=== PATIENT | female | born 1965 | race Caucasian/White ===

== ENCOUNTER 2016-05-01 16:01 | Inpatient (IN) ==
[2016-05-01] MEDS ORDERED: 0.9 % Sodium Chloride 1,000 ML IVC ONE ×2 (18:22→21:05)
[2016-05-01] MEDS ORDERED: Ondansetron 4 MG/2 ML VIAL IV ONE (18:22)
[2016-05-01] MEDS ORDERED: Vancomycin 1,000 MG in D5% in Water 250 ML IVPB ONE (18:22)
[2016-05-01] MEDS ORDERED: *HR* HYDROmorphone (PF) 1 MG/ML SYRINGE IV ONE (18:22)
--- NOTE | 2016-05-01 18:47 | Emergency Department Note ---
Disposition Clinical Impression: Cellulitis Qualifiers: Site of cellulitis: extremity Site of cellulitis of extremity: lower extremity Laterality: left Qualified Code(s): L03.116 - Cellulitis of left lower limb Disposition: Admitted As Inpatient Condition: Good Extremity Problem HPI - General Chief complaint: ED Extremity Problem,Nontraumatic Stated complaint: L Knee pain s/p sx on Apr 03. Time Seen by Provider: 05/01/16 18:22 Source: patient Limitations: no limitations Nursing Notes Reviewed: Yes Vital Signs Reviewed: Yes - History of Present Illness HPI Narrative: Patient is a 50-year-old female who is postop left total knee replacement on April 03 is coming in for acute pain and swelling her left knee today. She noticed some pain swelling some new erythema on the lateral portion of her left lower extremity. She states she is unable to bear weight and ambulate today due to the pain. Pt Subjective Complaint: extremity pain, extremity swelling Consistency: constant Pain Scale: 8 Quality: dull Improves with: elevation Worsens with: weight bearing, palpation Associated symptoms: Denies: chest pain, shortness of breath - Related Data Home Medications Medication Instructions Recorded Confirmed Hydrochlorothiazide 25 mg PO DAILY 09/15/15 04/03/16 Levothyroxine [Synthroid] 175 mcg PO 0630 09/15/15 04/03/16 Meloxicam [Mobic] 15 mg PO DAILY 09/15/15 04/03/16 Previous Rx's Medication Instructions Recorded Aspirin Enteric Coated [Aspirin EC] 325 mg PO DAILY #21 tablet. 04/02/16 OxyCODONE Immed Rel [Roxicodone 5 5 - 10 mg PO Q6HR PRN #40 tablet 04/02/16 MG] Allergies Allergy/AdvReac Type Severity Reaction Status Date / Time Erythromycin Base Allergy Gastrointestinal Verified 05/01/16 17:11 Upset All systems ED: reviewed and negative except as stated. Constitutional: Denies: fever, chills, weakness Cardiovascular: Denies: chest pain, palpitations Gastrointestinal: Denies: abdominal pain, nausea Past Medical History - Past Medical History Medical history: Reports: cancer Psychiatric history: Reports: no psych history WELFARE SPECIALIST history: Reports: no WELFARE SPECIALIST history - Social History Smoking Status: Former smoker Smokeless Tobacco Status: No Alcohol use: Reports: none Drug use: Reports: none Physical Exam - General Limitations: no limitations General appearance: alert, in no apparent distress - Head Head exam: atraumatic, normocephalic, normal inspection - Eye Eye exam: Present: normal appearance, PERRL, EOMI - ENT ENT exam: normal exam, normal oropharynx, mucous membranes moist - Neck Neck exam: Present: normal inspection, full ROM, trachea midline - Chest Chest inspection: Present: normal inspection, symmetric chest wall rise - Respiratory Respiratory exam: Present: normal lung sounds bilaterally - Cardiovascular Cardiovascular exam: Present: regular rate, normal rhythm, normal heart sounds - Abdominal Exam Abdominal exam: Present: soft, Non-Tender. Absent: tenderness, distention, guarding, rebound, rigidity - Expanded Lower Extremity Exam Knee exam: Present: other (Patient's left knee wound is clean dry and intact it does appear to be some cellulitis in the lower portion extending from the wound laterally proximally 6 cm in diameter will be outlined. Warm erythematous patient has decreased flexion secondary to pain and swelling.) - Back Exam Back exam: Present: normal inspection, full ROM. Absent: tenderness - Neurological Exam Neurological exam: Present: alert, oriented X3 - Psychiatric Psychiatric exam: Present: normal affect, normal mood Course Vital Signs Temperature 99.9 F H 05/01/16 17:06 Pulse Rate 75 05/01/16 17:06 Respiratory Rate 18 05/01/16 17:06 Blood Pressure 132/83 05/01/16 17:06 O2 Sat by Pulse Oximetry 98 05/01/16 17:06 Temperature 99.9 F H 05/01/16 17:06 Pulse Rate 75 05/01/16 17:06 Respiratory Rate 18 05/01/16 17:06 Blood Pressure 132/83 05/01/16 17:06 O2 Sat by Pulse Oximetry 98 05/01/16 17:06 Oxygen Delivery Oxygen Delivery Room Air Extremity Problem, Nontraumati - [facility] Narrative Medical decision making narrative: I spoke with Dr. Rodriguez on Bessy to the hospitalist service Dr. Brown blood cultures were drawn IV and about excuse given - Differential Diagnosis Likely: cellulitis, superficial thrombophlebitis, deep venous thrombosis, lower extremity edema, occult trauma - Medical Records Medical records reviewed: Yes I reviewed the patient's medical records. - Lab Data Lab results reviewed: Yes I reviewed the patient's lab results. Result diagrams: 05/01/16 18:59 05/01/16 18:59 Lab Results 05/01/16 05/01/16 05/01/16 Range/Units 18:59 18:59 18:59 WBC 16.7 H (4.3-11.1) K/mcL RBC 4.25 (3.82-4.97) M/mcL Hgb 13.2 (11.5-15.4) g/dL Hct 38.5 (35.3-44.9) % MCV 90.6 (83.0-100.0) fL MCH 31.1 (28.0-33.3) pg MCHC 34.3 (31.6-35.5) g/dL RDW 14.2 (11.5-14.5) % Plt Count 305 (140-400) K/mcL MPV 11.1 (9.4-12.4) fL Immature Gran % 0.4 (0-4) % Seg Neutrophils % 85.2 % Lymphocytes % 5.7 % Monocytes % 8.3 % Eosinophils % 0.3 % Basophils % 0.1 % Neutrophils # 14.2 H (1.6-8.9) K/mcL Lymphocytes # 1.0 (0.6-4.6) K/mcL Monocytes # 1.4 H (0.0-1.3) K/mcL Eosinophils # 0.1 (0.0-0.6) K/mcL Basophils # 0.0 (0.0-0.2) K/mcL ESR 34 H (0-15) mm/hr Sodium (136-145) mEq/L Potassium (3.5-4.5) mEq/L Chloride (98-109) mEq/L Carbon Dioxide (19-29) mEq/L BUN (7-20) mg/dL Creatinine (0.57-1.11) mg/dL Est GFR ( Amer) (> 60) Est GFR (Non-Af Amer) (> 60) BUN/Creatinine Ratio (6-26) Glucose (70-99) mg/dL Calculated Osmolality (280-300) Calcium (8.6-10.8) mg/dL C-Reactive Protein 45 H (Less than 5) mg/L 05/01/16 Range/Units 18:59 WBC (4.3-11.1) K/mcL RBC (3.82-4.97) M/mcL Hgb (11.5-15.4) g/dL Hct (35.3-44.9) % MCV (83.0-100.0) fL MCH (28.0-33.3) pg MCHC (31.6-35.5) g/dL RDW (11.5-14.5) % Plt Count (140-400) K/mcL MPV (9.4-12.4) fL Immature Gran % (0-4) % Seg Neutrophils % % Lymphocytes % % Monocytes % % Eosinophils % % Basophils % % Neutrophils # (1.6-8.9) K/mcL Lymphocytes # (0.6-4.6) K/mcL Monocytes # (0.0-1.3) K/mcL Eosinophils # (0.0-0.6) K/mcL Basophils # (0.0-0.2) K/mcL ESR (0-15) mm/hr Sodium 138 (136-145) mEq/L Potassium 3.5 (3.5-4.5) mEq/L Chloride 102 (98-109) mEq/L Carbon Dioxide 24 (19-29) mEq/L BUN 12 (7-20) mg/dL Creatinine 0.77 (0.57-1.11) mg/dL Est GFR ( Amer) > 60 (> 60) Est GFR (Non-Af Amer) > 60 (> 60) BUN/Creatinine Ratio 16 (6-26) Glucose 130 H (70-99) mg/dL Calculated Osmolality 288 (280-300) Calcium 9.6 (8.6-10.8) mg/dL C-Reactive Protein (Less than 5) mg/L - Radiology Data Radiology results reviewed: Yes I reviewed the patient's radiology results.
[2016-05-01 19:15] LABS: Basophils % 0.1 %; Eosinophils # 0.1 K/mcL (0.0-0.6); Eosinophils % 0.3 %; Hematocrit 38.5 % (35.3-44.9); Hemoglobin 13.2 g/dL (11.5-15.4); Immature Granulocytes % 0.4 % (0-4); Lymphocytes % 5.7 %; Mean Corpuscular HGB Conc 34.3 g/dL (31.6-35.5); Mean Corpuscular Hemoglobin 31.1 pg (28.0-33.3); Mean Corpuscular Volume 90.6 fL (83.0-100.0); Mean Platelet Volume 11.1 fL (9.4-12.4); Monocytes # 1.4 K/mcL (0.0-1.3); Monocytes % 8.3 %; Neutrophils # 14.2 K/mcL (1.6-8.9); Platelet Count 305 K/mcL (140-400); Red Blood Count 4.25 M/mcL (3.82-4.97); Red Cell Distribution Width 14.2 % (11.5-14.5); Segmented Neutrophils % 85.2 %
[2016-05-01 19:25] LABS: BUN/Creatinine Ratio 16 (6-26); Blood Urea Nitrogen 12 mg/dL (7-20); Calcium 9.6 mg/dL (8.6-10.8); Carbon Dioxide 24 mEq/L (19-29); Chloride 102 mEq/L (98-109); Glucose 130 mg/dL (70-99); Osmolality,Calculated 288 (280-300); Potassium 3.5 mEq/L (3.5-4.5); Sodium 138 mEq/L (136-145); eGFR For African Americans > 60 (> 60); eGFR For Non-African Americans > 60 (> 60)
[2016-05-01] MEDS ORDERED: *HR* Morphine 2 MG/ML SYRINGE IVP PRN (21:07)
[2016-05-01] MEDS ORDERED: Ondansetron 4 MG/2 ML VIAL IVP ONE (21:09)
--- NOTE | 2016-05-01 21:31 | Internal Med History&Physical ---
Date of Encounter: 05/01/16 Time of Encounter: 21:16 Assessment and Plan (1) Cellulitis Current visit: Yes Status: Acute Patient has acute cellulitis of the left knee and upper leg. My concern is if there is any associated septic arthritis. Patient definitely has decreased range of motion from 90 to 45. She is unable to bear weight except with severe pain on the left lower extremity. Septic arthritis is definitely a concern. Orthopedic service has been contacted by emergency room physician and I was told that their suspicion for septic arthritis is low. Patient has also been seen by orthopedic physician assistant merchandiser and she also thought that etiology is likely cellulitis. Anyways I will cover the patient empirically with bots recommend antibiotics vancomycin Zosyn. Blood cultures were ordered. Patient who receive 2L NORMAL SALINE. Continue normal saline 125 ml/h. await orthopedic recommendations. A systolic blood pressure currently is 150. She is not hypotensive. She will be kept on tele monitoring. I will check Doppler of the left lower extremity to rule out DVT Qualifiers: Site of cellulitis: extremity Site of cellulitis of extremity: lower extremity Laterality: left Qualified Code(s): L03.116 - Cellulitis of left lower limb (2) HTN (hypertension) Current visit: No Status: Chronic Whole blood pressure medications Qualifiers: Hypertension type: unspecified secondary hypertension Qualified Code(s): I15.9 - Secondary hypertension, unspecified; I15 - Secondary hypertension (3) Thyroid cancer Current visit: No Status: Chronic Status post thyroidectomy currently on levothyroxine. continue Internal Medicine - H&P: HPI Chief complaint: LEFT KNEE PAIN FEVER History of present illness: Ms. Mendes is a 50 year old female who had a recent left total knee arthroplasty after which she had a postoperative course, was able to bear weight on the left lower extremity and ambulate independently, presents to the emergency room today with the main complain of left knee pain and fever. Patient wants in her usual state of health till this morning when she started noticing swelling warmth tenderness and swelling involving the left knee especially on the lateral side as well as the upper part of the lateral left leg. She was having problems weight-bearing on the left lower extremity because of severe pain. She also has been having fevers and chills today and temperature at home was 100.8. The range of motion at the left knee was up to 90% with physical therapy after surgery. Today the range of motion is about 45% . Knee x-rays shows a small left knee fusion. She denies any drainage in the left knee incision. She denies any call for expectoration. No diarrhea. No urinary symptoms. Past Med Surg Social Fam HX - Past Medical History Medical history: cancer Psychiatric history: no psych history - Social History Smoking Status: Former smoker Smokeless Tobacco Status: No Alcohol use: none Drug use: none - Family History Father Hx Family Cardiac Disorders: Yes ([place]) Internal Medicine - H&P: Meds Hydrochlorothiazide 25 mg PO DAILY 09/15/15 [History] Levothyroxine [Synthroid] 175 mcg PO DAILY 09/15/15 [History] OxyCODONE Immed Rel [Roxicodone 5 MG] 5 - 10 mg PO Q6HR PRN #40 tablet 04/02/16 [Rx] Ibuprofen [Motrin] 800 mg PO Q8HR 05/01/16 [History] Allergies Erythromycin Base Allergy (Verified 05/01/16 17:11) Gastrointestinal Upset All Systems PM: A 10-system review of systems was performed and is negative for pertinent findings except as documented above in the HPI. Review of systems: Ten point review of systems is negative except for HPI - Constitutional Vitals: Temp Pulse Resp BP Pulse Ox 99.9 F H 75 18 132/83 98 05/01/16 17:06 05/01/16 18:06 05/01/16 18:06 05/01/16 18:06 05/01/16 18:06 Exam: Gen.: patient is alert oriented not in distress. Cardiac: Normal S1 S2 no additional sounds or murmurs chest: clear to auscultation abdomen soft nontender nondistended normal bowel sounds lower extremity: left knee swollen red warm tender. ROM 45 degrees. Upper lateral right leg also red.. Pulsations intact. Calf muscle lax neuro no focal deficit Internal Med - H&P Results - Labs CBC & Chem 7: 05/01/16 18:59 05/01/16 18:59
[2016-05-01] MEDS ORDERED: Piperacillin/Tazobactam 3.375 GM in D5% in Water (Mini-Bag+) 100 ML IVPB SCH (22:00)
[2016-05-01] MEDS: *HR* Heparin 5,000 UNIT/ML VIAL SQ SCH (23:15)
[2016-05-01] MEDS: D5% in 0.9% NACL 1,000 ML IVC SCH (23:17)
[2016-05-02] MEDS ORDERED: *HR* HYDROmorphone 2 MG/ML SYRINGE IVP PRN (00:05)
[2016-05-02] MEDS ORDERED: 0.9 % Sodium Chloride 1,000 ML IVC ONE (00:06)
[2016-05-02] MEDS: *HR* HYDROmorphone (PF) 1 MG/ML SYRINGE IVP PRN ×5 (03:32→23:49)
[2016-05-02 05:59] LABS: Basophils % 0.2 %; Eosinophils # 0.1 K/mcL (0.0-0.6); Eosinophils % 0.6 %; Hematocrit 34.8 % (35.3-44.9); Immature Granulocytes % 0.4 % (0-4); Lymphocytes # 1.1 K/mcL (0.6-4.6); Lymphocytes % 8.9 %; Mean Corpuscular HGB Conc 32.8 g/dL (31.6-35.5); Mean Corpuscular Hemoglobin 30.4 pg (28.0-33.3); Mean Corpuscular Volume 92.8 fL (83.0-100.0); Mean Platelet Volume 11.1 fL (9.4-12.4); Monocytes # 1.3 K/mcL (0.0-1.3); Monocytes % 10.8 %; Neutrophils # 9.4 K/mcL (1.6-8.9); Platelet Count 256 K/mcL (140-400); Red Blood Count 3.75 M/mcL (3.82-4.97); Red Cell Distribution Width 14.4 % (11.5-14.5); Segmented Neutrophils % 79.1 %
[2016-05-02 06:00] LABS: Hemoglobin 11.4 g/dL (11.5-15.4)
[2016-05-02] MEDS ORDERED: Vancomycin 1,000 MG in D5% in Water 250 ML IVPB SCH (06:00)
[2016-05-02 06:11] LABS: BUN/Creatinine Ratio 13 (6-26); Blood Urea Nitrogen 9 mg/dL (7-20); C-Reactive Protein 136 mg/L (Less than 5); Calcium 8.3 mg/dL (8.6-10.8); Carbon Dioxide 23 mEq/L (19-29); Chloride 103 mEq/L (98-109); Glucose 143 mg/dL (70-99); Magnesium 1.7 mg/dL (1.6-2.6); Osmolality,Calculated 283 (280-300); Potassium 3.3 mEq/L (3.5-4.5); Sodium 136 mEq/L (136-145); eGFR For African Americans > 60 (> 60); eGFR For Non-African Americans > 60 (> 60)
--- NOTE | 2016-05-02 06:20 | Orthopedics Progress Note ---
Date of Encounter: 05/02/16 Time of Encounter: 06:19 Subjective Interval history: Patient seen this morning Acute Onset of Left Knee Pain. The Swelling. Patient with History of Contact Dermatitis. Resolving Contact Dermatitis on Exam Swelling Is Erythema Distal to the Knee Joint Decreased Motion Secondary to Pain Neurovascularly Intact. Labs reviewed her continued IV antibiotics reevaluation this afternoon concerned with cellulitis primarily. Objective Vital signs: Vital Signs Temp Pulse Resp BP Pulse Ox 05/02/16 03:53 98.7 F 101 19 128/85 98 05/01/16 23:32 98.8 F 104 17 126/81 98 Intake and Output 05/01/16 05/01/16 05/02/16 15:59 23:59 07:59 Output Total 350 / 350 Balance -350 / -350 Output: Urine 350 / 350 Other: Weight 117.4 kg - Labs CBC & BMP: 05/02/16 05:11 05/02/16 05:11 Labs: Abnormal lab results WBC 11.9 K/mcL (4.3-11.1) H 05/02/16 05:11 RBC 3.75 M/mcL (3.82-4.97) L 05/02/16 05:11 Hgb 11.4 g/dL (11.5-15.4) L D 05/02/16 05:11 Hct 34.8 % (35.3-44.9) L 05/02/16 05:11 Neutrophils # 9.4 K/mcL (1.6-8.9) H 05/02/16 05:11 ESR 34 mm/hr (0-15) H 05/01/16 18:59 Potassium 3.3 mEq/L (3.5-4.5) L 05/02/16 05:11 Glucose 143 mg/dL (70-99) H 05/02/16 05:11 Calcium 8.3 mg/dL (8.6-10.8) L 05/02/16 05:11 C-Reactive Protein 136 mg/L (Less than 5) H 05/02/16 05:11 Consult Discharge Plan - Plan
[2016-05-02] MEDS: *HR* Heparin 5,000 UNIT/ML VIAL SQ SCH ×3 (06:29→23:44)
[2016-05-02] MEDS: D5% in 0.9% NACL 1,000 ML IVC SCH (08:34)
[2016-05-02] MEDS: Vancomycin 1,750 MG in D5% in Water 500 ML IVPB SCH ×2 (08:35→21:02)
[2016-05-02] MEDS: Famotidine 20 MG TABLET PO SCH ×2 (08:36→08:48)
[2016-05-02] MEDS: Acetaminophen 325 MG TABLET PO PRN ×2 (08:36→18:36)
[2016-05-02] MEDS ORDERED: *HR* HYDROcodone/Acet 5/325 mg TABLET PO PRN ×2 (08:44→12:28)
[2016-05-02] MEDS: Ondansetron 4 MG/2 ML VIAL IVP PRN ×2 (09:01→21:30)
[2016-05-02] MEDS: Piperacillin/Tazobactam 3.375 GM in D5% in Water (Mini-Bag+) 100 ML IVPB SCH ×3 (10:35→23:43)
[2016-05-02] MEDS: *HR* HYDROcodone/Acet 5/325 mg TABLET PO PRN ×3 (13:02→21:32)
--- NOTE | 2016-05-02 16:38 | Event Note ---
Date of Encounter: 05/02/16 Time of Encounter: 16:37 CRP elevated 134, WBC decreased to 11.9. Will continue with close monitoring. Continue IV Vanc/Zosyn.
--- NOTE | 2016-05-02 16:48 | Internal Med Progress Note ---
Date of Encounter: 05/02/16 Time of Encounter: 16:45 - Assessment and plan (1) Cellulitis Current Visit: Yes Status: Acute Assessment and plan: Patient initially was febrile, with criteria for sepsis, there was a concern for septic arthritis. She was established on both Zosyn and vancomycin. Evaluated by orthopedic surgery, according to the orthopedic surgeon's input patient likely has cellulitis only. However in light of the elevated CRP, we will continue with both IV vancomycin and IV Zosyn. Patient has been complaining of significant pain, she cannot require high doses of opiates via IV. We will continue with IV medications along with by mouth medications when necessary. Patient is at high risk due to use of opiates. Plan of care was explained to the patient, she expressed understanding. Follow cultures. Follow vancomycin levels. Follow renal function tests. Qualifiers: Site of cellulitis: extremity Site of cellulitis of extremity: lower extremity Laterality: left Qualified Code(s): L03.116 - Cellulitis of left lower limb (2) Obesity Current Visit: No Status: Chronic Qualifiers: Obesity type: unspecified obesity type Obesity severity: morbid Qualified Code(s): E66.01 - Morbid (severe) obesity due to excess calories (3) Thyroid cancer Current Visit: No Status: Chronic - Time Spent With Patient 25 - 35 minutes - Subjective Interval history: This is my first encounter with the patient. The patient was seen and examined on rounds. Family members were present during this encounter. Still feels pain in the left knee, however it has dictating the use of IV medication. Erythema has decreased according to the patient. - Constitutional Vitals: Temp Pulse Resp BP Pulse Ox 99.4 F 88 16 100/62 99 05/02/16 15:01 05/02/16 15:01 05/02/16 15:01 05/02/16 15:01 05/02/16 15:01 General appearance: Present: cooperative, A&O X 3, morbidly obese - Head Head exam: Present: atraumatic, normocephalic - Eye Eye exam: Present: PERRL, conjuntiva pink, sclera anicteric Pupils: Present: PERRL - Neck Neck exam general surgery: Present: supple, trachea midline. Absent: lymphadenopathy - Respiratory Respiratory exam: Present: CTAB. Absent: accessory muscle use, rales, rhonchi, wheezes - Cardiovascular Cardiovascular exam: Present: RRR, +S1, +S2. Absent: diastolic murmur, gallop, rubs, systolic murmur - GI/Abdominal GI/Abdominal exam: Present: normal bowel sounds, soft, no peritoneal signs. Absent: distended, tenderness - Extremities Exam Extremities exam: Present: warm, radial pulses palpable and symetrical. Absent : calf tenderness, cyanotic, pedal edema Additional comments: eft knee swollen red warm tender. ROM 45 degrees. Upper lateral right leg also red.. Pulsations intact. Calf muscle lax neuro no focal deficit - Neurological Exam Neurological exam: Present: CN II-XII intact, oriented X3, no focal deficits. Absent: pronater drift, facial droop, speech deficit - Skin Skin exam: Present: dry, intact Internal Medicine: Result - Labs CBC & Chem 7: 05/02/16 05:11 05/02/16 05:11 Labs: Short CBC 05/02/16 Range/Units 05:11 WBC 11.9 H (4.3-11.1) K/mcL Hgb 11.4 L D (11.5-15.4) g/dL Hct 34.8 L (35.3-44.9) % Plt Count 256 (140-400) K/mcL Neutrophils # 9.4 H (1.6-8.9) K/mcL BMP 05/02/16 05:11 Sodium 136 Potassium 3.3 L Chloride 103 Carbon Dioxide 23 BUN 9 Creatinine 0.69 Glucose 143 H Calcium 8.3 L Consult Discharge Plan - Plan Referrals: Tita Clemente MD [Primary Care Provider] -
--- NOTE | 2016-05-02 18:07 | Venous Imaging Report ---
LE Venous Duplex Patient Name:Mackenzie Mendes Order Number:[id number] Procedure Date:05/02/2016 Date:1965Age:50 yrs Gender:Female Location:[facility] Room #: [id number] Petroleum Sampler:Kristi Pagan RVT Referring MD:Dung Brown MD marketing rep:Tita Clemente MD Reading MD:Miguel Mayers MD , FACS Primary Indications:DVT Secondary Indications: Risk Factors Yes/No Hx of DVT Yes Anticoagulants Yes Recent Surgery Yes Impressions: Left lower extremity: normal superficial and deep exam. Right lower extremity: normal contralateral exam. Findings Venous Duplex Results: Right: Venous imaging of the lower extremity reveals full patency and normal vessel compressibility of the right common femoral. Doppler signals in the evaluated veins were normal. Left: Venous imaging of the lower extremity reveals full patency and normal vessel compressibility of the left distal iliac, left common femoral, left superficial femoral, left popliteal, left posterior tibial, left great saphenous and left lesser saphenous. Doppler signals in the evaluated veins were normal. Prior Study: No prior study available for comparison. Lower Extremity Venous Duplex Side Vein Compress Spontaneous Flow Augment Diameter (cm) Depth (cm) Left Distal Iliac Normal Yes Phasic Yes Left Common Femoral Normal Yes Phasic Yes Left Superficial Femoral Normal Yes Phasic Yes Left Popliteal Normal Yes Phasic Yes Left Posterior Tibial Normal Yes Phasic Yes Left Great Saphenous Normal Yes Phasic Yes Left Lesser Saphenous Normal Yes Phasic Yes Right Common Femoral Normal Yes Phasic Yes Updated by Miguel Mayers MD, FACS on 05/02/2016 6:00:27 PM Miguel Mayers MD electronically signed on 05/02/2016 6:00:51 PM with status of Final
[2016-05-02] MEDS ORDERED: Piperacillin/Tazobactam 3.375 GM VIAL IVPB ONE (23:38)
[2016-05-03] MEDS: *HR* HYDROcodone/Acet 5/325 mg TABLET PO PRN ×2 (03:45→09:58)
[2016-05-03] MEDS: *HR* Heparin 5,000 UNIT/ML VIAL SQ SCH ×3 (06:52→23:37)
[2016-05-03] MEDS: *HR* HYDROmorphone (PF) 1 MG/ML SYRINGE IVP PRN ×3 (06:55→22:56)
--- NOTE | 2016-05-03 08:16 | Orthopedics Progress Note ---
Date of Encounter: 05/03/16 Time of Encounter: 08:15 Subjective Interval history: Patient seen this morning feels like she is doing better improve motion. Patient had a significant increase in her CRP. Patient underwent sterile aspiration of the left knee which returned serosanguineous fluid. This was sent for Gram stain which showed no bacteria. Low suspicion of intra-articular process resolving cellulitis as well as resolving contact dermatitis recommended 24 hours more of IV antibiotics and discharged in the a.m. if continuing to improve. Objective Vital signs: Vital Signs Temp Pulse Resp BP Pulse Ox 05/03/16 06:51 98.6 F 93 16 100/66 97 05/03/16 04:53 99.1 F 100 16 119/68 99 05/03/16 00:04 99.2 F 85 14 109/74 96 05/02/16 21:27 98 16 102/69 98 05/02/16 21:14 98 16 102/69 98 05/02/16 18:32 101.1 F H 109 144/83 05/02/16 15:01 99.4 F 88 16 100/62 99 05/02/16 13:00 98.5 F 63 16 118/62 96 Intake and Output 05/02/16 05/03/16 05/03/16 23:59 07:59 15:59 Intake Total 440 / 440 900 / 900 Balance 440 / 440 900 / 900 Intake: IV Fluids 200 / 200 600 / 600 Zosyn 3.375 GM In 200 / 200 100 / 100 Dextrose 5% (Minibag+) 100 ML 100 ML @ 25 mls/hr IVPB Q8H JACQUELYN Rx#: [id number] Vancocin 1,750 MG In 500 / 500 Dextrose 5% 500 ML @ 333. 34 mls/hr IVPB Q12H JACQUELYN Rx#:[id number] Oral 240 / 240 300 / 300 Other: # Voids 1 - Labs CBC & BMP: 05/02/16 05:11 05/02/16 05:11 Labs: Abnormal lab results WBC 11.9 K/mcL (4.3-11.1) H 05/02/16 05:11 RBC 3.75 M/mcL (3.82-4.97) L 05/02/16 05:11 Hgb 11.4 g/dL (11.5-15.4) L D 05/02/16 05:11 Hct 34.8 % (35.3-44.9) L 05/02/16 05:11 Neutrophils # 9.4 K/mcL (1.6-8.9) H 05/02/16 05:11 ESR 34 mm/hr (0-15) H 05/01/16 18:59 Potassium 3.3 mEq/L (3.5-4.5) L 05/02/16 05:11 Glucose 143 mg/dL (70-99) H 05/02/16 05:11 Calcium 8.3 mg/dL (8.6-10.8) L 05/02/16 05:11 C-Reactive Protein 136 mg/L (Less than 5) H 05/02/16 05:11 Consult Discharge Plan - Plan Referrals: Tita Clemente MD [Primary Care Provider] -
[2016-05-03 08:21] LABS: Basophils % 0.2 %; Eosinophils # 0.1 K/mcL (0.0-0.6); Eosinophils % 0.7 %; Hematocrit 31.7 % (35.3-44.9); Hemoglobin 10.6 g/dL (11.5-15.4); Immature Granulocytes % 0.6 % (0-4); Lymphocytes # 0.7 K/mcL (0.6-4.6); Lymphocytes % 8.1 %; Mean Corpuscular HGB Conc 33.4 g/dL (31.6-35.5); Mean Corpuscular Volume 92.7 fL (83.0-100.0); Mean Platelet Volume 10.8 fL (9.4-12.4); Monocytes # 0.8 K/mcL (0.0-1.3); Monocytes % 9.5 %; Neutrophils # 6.8 K/mcL (1.6-8.9); Platelet Count 212 K/mcL (140-400); Red Blood Count 3.42 M/mcL (3.82-4.97); Red Cell Distribution Width 14.4 % (11.5-14.5); Segmented Neutrophils % 80.9 %
[2016-05-03 08:34] LABS: BUN/Creatinine Ratio 10 (6-26); Blood Urea Nitrogen 8 mg/dL (7-20); Calcium 9.1 mg/dL (8.6-10.8); Carbon Dioxide 24 mEq/L (19-29); Chloride 102 mEq/L (98-109); Glucose 132 mg/dL (70-99); Osmolality,Calculated 280 (280-300); Potassium 3.4 mEq/L (3.5-4.5); Sodium 135 mEq/L (136-145); eGFR For African Americans > 60 (> 60); eGFR For Non-African Americans > 60 (> 60)
[2016-05-03] MEDS: Ondansetron 4 MG/2 ML VIAL IVP PRN ×2 (09:10→15:23)
[2016-05-03] MEDS: Piperacillin/Tazobactam 3.375 GM in D5% in Water (Mini-Bag+) 100 ML IVPB SCH ×3 (09:14→19:41)
[2016-05-03] MEDS: Vancomycin 1,750 MG in D5% in Water 500 ML IVPB SCH ×3 (09:15→23:37)
[2016-05-03] MEDS: Famotidine 20 MG TABLET PO SCH (09:15)
[2016-05-03] MEDS: Acetaminophen 325 MG TABLET PO PRN ×2 (09:29→15:30)
--- NOTE | 2016-05-03 16:33 | Internal Med Progress Note ---
Date of Encounter: 05/03/16 Time of Encounter: 16:30 - Assessment and plan (1) Cellulitis Current Visit: Yes Status: Acute Assessment and plan: Patient initially was febrile, with criteria for sepsis, there was a concern for septic arthritis. She was started on both Zosyn and vancomycin, however still had fever last night and is still in significant pain. Evaluated by orthopedic surgery, according to the orthopedic surgeon's input patien has cellulitis only. Gram stain did not reveal bacteria. However in light of the elevated CRP, we will continue with both IV vancomycin and IV Zosyn. Patient has been complaining of significant pain, We will continue with IV medications along with by mouth medications when necessary. Patient is at high risk due to use of opiates. Plan of care was explained to the patient, she expressed understanding. Follow cultures. Follow vancomycin levels. Follow renal function tests. monitor crp tomorrow. Qualifiers: Site of cellulitis: extremity Site of cellulitis of extremity: lower extremity Laterality: left Qualified Code(s): L03.116 - Cellulitis of left lower limb (2) Obesity Current Visit: No Status: Chronic Qualifiers: Obesity type: unspecified obesity type Obesity severity: morbid Qualified Code(s): E66.01 - Morbid (severe) obesity due to excess calories (3) Thyroid cancer Current Visit: No Status: Chronic - Subjective Interval history: The patient was seen and examined on rounds. Family members were present during this encounter. Still feels pain in the left knee. Fever last night. Erythema has increased according to the patient. - Constitutional Vitals: Temp Pulse Resp BP Pulse Ox 99.5 F 97 18 150/80 97 05/03/16 15:43 05/03/16 15:43 05/03/16 15:43 05/03/16 15:43 05/03/16 15:43 General appearance: Present: cooperative, A&O X 3, morbidly obese - Head Head exam: Present: atraumatic, normocephalic - Eye Eye exam: Present: PERRL, conjuntiva pink, sclera anicteric Pupils: Present: PERRL - Neck Neck exam general surgery: Present: supple, trachea midline. Absent: lymphadenopathy - Respiratory Respiratory exam: Present: CTAB. Absent: accessory muscle use, rales, rhonchi, wheezes - Cardiovascular Cardiovascular exam: Present: RRR, +S1, +S2. Absent: diastolic murmur, gallop, rubs, systolic murmur - GI/Abdominal GI/Abdominal exam: Present: normal bowel sounds, soft, no peritoneal signs. Absent: distended, tenderness - Extremities Exam Extremities exam: Present: warm, radial pulses palpable and symetrical. Absent : calf tenderness, cyanotic, pedal edema Additional comments: pain and erythema in left knee, decreased range of motion. - Neurological Exam Neurological exam: Present: CN II-XII intact, oriented X3, no focal deficits. Absent: pronater drift, facial droop, speech deficit - Skin Skin exam: Present: dry, intact Internal Medicine: Result - Labs CBC & Chem 7: 05/03/16 07:56 05/03/16 07:56 Labs: Short CBC 05/03/16 Range/Units 07:56 WBC 8.4 (4.3-11.1) K/mcL Hgb 10.6 L (11.5-15.4) g/dL Hct 31.7 L (35.3-44.9) % Plt Count 212 (140-400) K/mcL Neutrophils # 6.8 (1.6-8.9) K/mcL BMP 05/03/16 07:56 Sodium 135 L Potassium 3.4 L Chloride 102 Carbon Dioxide 24 BUN 8 Creatinine 0.82 Glucose 132 H Calcium 9.1 Consult Discharge Plan - Plan Referrals: Tita Clemente MD [Primary Care Provider] -
[2016-05-03] MEDS ORDERED: Dexamethasone 4 MG/ML VIAL IVP ONE (17:55)
[2016-05-03] MEDS: Ketorolac 15 MG/ML VIAL IVP PRN (18:15)
[2016-05-03] MEDS: FluocinoNIDE 0.05% CRM 15 GM TUBE TP SCH (19:58)
[2016-05-03 23:10] LABS: Bilirubin,Urine Negative (Negative); Blood,Urine Negative (Negative); Clarity,Urine Clear (Clear); Color,Urine Yellow (Yellow); Glucose,Urine (UA) Normal (Normal); Ketones,Urine Negative (Negative); Leukocyte Esterase,Urine Negative (Negative); Nitrite,Urine Negative (Negative); Protein,Urine Negative (Neg-Trace); Urobilinogen,Urine Normal (Normal)
[2016-05-04] MEDS: Ketorolac 15 MG/ML VIAL IVP PRN ×3 (03:59→18:05)
[2016-05-04] MEDS: Piperacillin/Tazobactam 3.375 GM in D5% in Water (Mini-Bag+) 100 ML IVPB SCH (04:00)
[2016-05-04 04:37] LABS: Basophils % 0.1 %; Hematocrit 31.2 % (35.3-44.9); Hemoglobin 10.3 g/dL (11.5-15.4); Immature Granulocytes % 0.7 % (0-4); Lymphocytes # 0.7 K/mcL (0.6-4.6); Lymphocytes % 9.6 %; Monocytes # 0.6 K/mcL (0.0-1.3); Monocytes % 8.9 %; Neutrophils # 5.7 K/mcL (1.6-8.9); Platelet Count 197 K/mcL (140-400); Red Blood Count 3.43 M/mcL (3.82-4.97); Segmented Neutrophils % 80.7 %
[2016-05-04 04:51] LABS: BUN/Creatinine Ratio 13 (6-26); Blood Urea Nitrogen 10 mg/dL (7-20); Calcium 9.1 mg/dL (8.6-10.8); Carbon Dioxide 24 mEq/L (19-29); Chloride 105 mEq/L (98-109); Glucose 156 mg/dL (70-99); Osmolality,Calculated 286 (280-300); Potassium 4.2 mEq/L (3.5-4.5); Sodium 137 mEq/L (136-145); eGFR For African Americans > 60 (> 60); eGFR For Non-African Americans > 60 (> 60)
[2016-05-04] MEDS: *HR* Heparin 5,000 UNIT/ML VIAL SQ SCH ×3 (06:14→23:19)
[2016-05-04] MEDS: *HR* HYDROcodone/Acet 5/325 mg TABLET PO PRN ×3 (06:15→15:48)
--- NOTE | 2016-05-04 06:20 | Orthopedics Progress Note ---
Date of Encounter: 05/04/16 Time of Encounter: 06:18 Subjective Interval history: Patient seen this morning had worsening of knee pain last evening.The patient had a Gram stain was negative from the left knee joint. Urine analysis was negative culture from the knee is pending blood cultures have been negative. Today the patient is doing much better erythema is almost completely resolved motion is improved. We will continue to monitor for another 24 hours. Continue to monitor CRP which is now trending down slightly. Patient was also placed on steroids initially Objective Vital signs: Vital Signs Temp Pulse Resp BP Pulse Ox 05/04/16 04:00 98.1 F 78 16 115/68 99 05/04/16 00:00 98.7 F 78 16 120/65 93 L 05/03/16 20:37 98.5 F 100 17 113/69 97 05/03/16 15:43 99.5 F 97 18 150/80 97 05/03/16 13:25 99.0 F 05/03/16 12:02 98.1 F 81 16 101/64 95 05/03/16 09:24 99.8 F H 05/03/16 06:51 98.6 F 93 16 100/66 97 Intake and Output 05/03/16 05/03/16 05/04/16 15:59 23:59 07:59 Intake Total 960 / 960 100 / 100 Output Total 500 / 500 350 / 350 Balance 960 / 960 -400 / -400 -350 / -350 Intake: IV Fluids 600 / 600 100 / 100 Zosyn 3.375 GM In 100 / 100 100 / 100 Dextrose 5% (Minibag+) 100 ML 100 ML @ 25 mls/hr IVPB Q8H [facility] Rx#: [id number] Vancocin 1,750 MG In 500 / 500 Dextrose 5% 500 ML @ 333. 34 mls/hr IVPB Q12H [facility] Rx#:[id number] Oral 360 / 360 Output: Urine 500 / 500 350 / 350 Other: Meal Lunch Percent of Meal Consumed 80% - Labs CBC & BMP: 05/04/16 04:20 05/04/16 04:20 Labs: Abnormal lab results RBC 3.43 M/mcL (3.82-4.97) L 05/04/16 04:20 Hgb 10.3 g/dL (11.5-15.4) L 05/04/16 04:20 Hct 31.2 % (35.3-44.9) L 05/04/16 04:20 ESR 34 mm/hr (0-15) H 05/01/16 18:59 Glucose 156 mg/dL (70-99) H 05/04/16 04:20 C-Reactive Protein 224 mg/L (Less than 5) H 05/04/16 04:20 Consult Discharge Plan - Plan Referrals: Tita Clemente MD [Primary Care Provider] -
[2016-05-04] MEDS: FluocinoNIDE 0.05% CRM 15 GM TUBE TP SCH ×2 (10:06→19:44)
[2016-05-04] MEDS: Lactulose Oral Soln 20 GM/30 ML UDC PO SCH ×2 (11:29→19:44)
[2016-05-04] MEDS: Famotidine 20 MG TABLET PO SCH (11:30)
[2016-05-04] MEDS: Vancomycin 1,750 MG in D5% in Water 500 ML IVPB SCH ×2 (13:25→23:20)
[2016-05-04] MEDS: *HR* HYDROmorphone (PF) 1 MG/ML SYRINGE IVP PRN ×2 (13:33→22:05)
--- NOTE | 2016-05-04 15:46 | Internal Med Progress Note ---
Date of Encounter: 05/04/16 Time of Encounter: 15:44 - Assessment and plan (1) Cellulitis Current Visit: Yes Status: Acute Assessment and plan: Patient initially was febrile, with criteria for sepsis, there was a concern for septic arthritis. She was started on both Zosyn and vancomycin, however still had fever and was in significant pain. Evaluated by orthopedic surgery, according to the orthopedic surgeon's input patient has cellulitis only. Gram stain did reveal gram positive bacteria, staph., pending sensitivity. Will continue with IV vancomycin and d/c IV Zosyn. Will need iv antibiotics for 2 weeks. Plan of care was explained to the patient, she expressed understanding. Follow cultures. Follow vancomycin levels. Follow renal function tests. Qualifiers: Site of cellulitis: extremity Site of cellulitis of extremity: lower extremity Laterality: left Qualified Code(s): L03.116 - Cellulitis of left lower limb (2) Obesity Current Visit: No Status: Chronic Qualifiers: Obesity type: unspecified obesity type Obesity severity: morbid Qualified Code(s): E66.01 - Morbid (severe) obesity due to excess calories (3) Thyroid cancer Current Visit: No Status: Chronic - Subjective Interval history: The patient was seen and examined on rounds. Family members were present during this encounter. Still feels pain in the left knee, however is getting better, less erythema. - Constitutional Vitals: Temp Pulse Resp BP Pulse Ox 98.5 F 66 18 99/63 99 05/04/16 14:59 05/04/16 14:59 05/04/16 14:59 05/04/16 14:59 05/04/16 14:59 General appearance: Present: cooperative, A&O X 3, morbidly obese - Head Head exam: Present: atraumatic, normocephalic - Eye Eye exam: Present: PERRL, conjuntiva pink, sclera anicteric Pupils: Present: PERRL - Neck Neck exam general surgery: Present: supple, trachea midline. Absent: lymphadenopathy - Respiratory Respiratory exam: Present: CTAB. Absent: accessory muscle use, rales, rhonchi, wheezes - Cardiovascular Cardiovascular exam: Present: RRR, +S1, +S2. Absent: diastolic murmur, gallop, rubs, systolic murmur - GI/Abdominal GI/Abdominal exam: Present: normal bowel sounds, soft, no peritoneal signs. Absent: distended, tenderness - Extremities Exam Extremities exam: Present: warm, radial pulses palpable and symetrical. Absent : calf tenderness, cyanotic, pedal edema - Neurological Exam Neurological exam: Present: CN II-XII intact, oriented X3, no focal deficits. Absent: pronater drift, facial droop, speech deficit - Skin Skin exam: Present: dry, intact Internal Medicine: Result - Labs CBC & Chem 7: 05/04/16 04:20 05/04/16 04:20 Labs: Short CBC 05/04/16 Range/Units 04:20 WBC 7.1 (4.3-11.1) K/mcL Hgb 10.3 L (11.5-15.4) g/dL Hct 31.2 L (35.3-44.9) % Plt Count 197 (140-400) K/mcL Neutrophils # 5.7 (1.6-8.9) K/mcL BMP 05/04/16 04:20 Sodium 137 Potassium 4.2 Chloride 105 Carbon Dioxide 24 BUN 10 Creatinine 0.75 Glucose 156 H Calcium 9.1 Urine 05/03/16 Range/Units 22:30 Urine Color Yellow (Yellow) Urine Clarity Clear (Clear) Urine pH 7.0 (5.0-8.0) pH Units Ur Specific [place] 1.010 (1.010-1.025) Urine Protein Negative (Neg-Trace) mg/dL Urine Glucose (UA) Normal (Normal) mg/dL - Impressions Impressions Chest X-Ray 05/03/16 20:40 IMPRESSION: No acute process. D/ / Osvaldo Johnson MD / Osvaldo Johnson MD Interpreting Provider: Osvaldo Johnson MD - VTE Documentation of Mechanical Device: Venous foot pump, device Consult Discharge Plan - Plan Referrals: Tita Clemente MD [Primary Care Provider] -
--- NOTE | 2016-05-04 16:23 | Event Note ---
Date of Encounter: 05/04/16 Time of Encounter: 12:30 Reviewed lab results with patient. Left Knee Aspiration from 05/03/16 now positive for Gram+ cocci - sparse amount. Patient is improving, less erythema, less swelling. Better mobility and pain has lessened. Results discussed with . Plan will be to D/C tomorrow on IV Vancomycin for 2-4 weeks, with close monitoring. Awaiting final cultures results tomorrow. Surgical consideration only if patient becomes more symptomatic, or fever returns. Discussed with hospitalist.
[2016-05-05] MEDS: *HR* HYDROcodone/Acet 5/325 mg TABLET PO PRN ×4 (01:38→16:11)
[2016-05-05] MEDS: *HR* HYDROmorphone (PF) 1 MG/ML SYRINGE IVP PRN ×3 (04:21→20:35)
[2016-05-05 04:25] LABS: Basophils % 0.2 %; Eosinophils # 0.2 K/mcL (0.0-0.6); Eosinophils % 2.8 %; Immature Granulocytes % 0.7 % (0-4); Lymphocytes # 1.7 K/mcL (0.6-4.6); Lymphocytes % 19.7 %; Mean Corpuscular HGB Conc 33.3 g/dL (31.6-35.5); Mean Corpuscular Hemoglobin 30.7 pg (28.0-33.3); Mean Platelet Volume 10.7 fL (9.4-12.4); Monocytes # 1.2 K/mcL (0.0-1.3); Monocytes % 13.7 %; Neutrophils # 5.5 K/mcL (1.6-8.9); Platelet Count 239 K/mcL (140-400); Red Blood Count 3.26 M/mcL (3.82-4.97); Red Cell Distribution Width 14.3 % (11.5-14.5); Segmented Neutrophils % 62.9 %
[2016-05-05 04:35] LABS: BUN/Creatinine Ratio 14 (6-26); Blood Urea Nitrogen 11 mg/dL (7-20); Calcium 9.1 mg/dL (8.6-10.8); Carbon Dioxide 24 mEq/L (19-29); Chloride 105 mEq/L (98-109); Glucose 110 mg/dL (70-99); Osmolality,Calculated 290 (280-300); Potassium 3.8 mEq/L (3.5-4.5); Sodium 140 mEq/L (136-145); eGFR For African Americans > 60 (> 60); eGFR For Non-African Americans > 60 (> 60)
--- NOTE | 2016-05-05 06:43 | Orthopedics Progress Note ---
Date of Encounter: 05/05/16 Time of Encounter: 06:41 Subjective Interval history: Patient seen this morning had worsening of knee pain last evening. The patient has a positive staph aureus culture from the left knee. This was like growth. Physical exam swelling no erythema limited motion. Patient is not making the appropriate progression plans for open irrigation debridement with polyethylene exchange. Objective Vital signs: Vital Signs Temp Pulse Resp BP Pulse Ox 05/05/16 05:13 97.8 F 85 15 106/58 99 05/05/16 00:40 98.6 F 75 16 107/71 100 05/04/16 21:02 98.5 F 75 16 107/74 99 05/04/16 15:47 97.9 F 76 130/78 05/04/16 14:59 98.5 F 66 18 99/63 99 05/04/16 13:25 97.7 F 86 18 115/75 98 05/04/16 12:11 97.9 F Intake and Output 05/04/16 05/04/16 05/05/16 15:59 23:59 07:59 Intake Total 1100 / 1100 Balance 1100 / 1100 Intake: IV Fluids 1100 / 1100 Zosyn 3.375 GM In 100 / 100 Dextrose 5% (Minibag+) 100 ML 100 ML @ 25 mls/hr IVPB Q8H [facility] Rx#: [id number] Vancocin 1,750 MG In 1000 / 1000 Dextrose 5% 500 ML @ 333. 34 mls/hr IVPB Q12H [facility] Rx#:[id number] Other: # Voids 1 - Labs CBC & BMP: 05/05/16 04:10 05/05/16 04:10 Labs: Abnormal lab results RBC 3.26 M/mcL (3.82-4.97) L 05/05/16 04:10 Hgb 10.0 g/dL (11.5-15.4) L 05/05/16 04:10 Hct 30.0 % (35.3-44.9) L 05/05/16 04:10 ESR 34 mm/hr (0-15) H 05/01/16 18:59 Glucose 110 mg/dL (70-99) H 05/05/16 04:10 C-Reactive Protein 224 mg/L (Less than 5) H 05/04/16 04:20 - VTE Documentation of Mechanical Device: Intermittent pneumatic compression device Consult Discharge Plan - Plan Referrals: Tita Clemente MD [Primary Care Provider] -
[2016-05-05] MEDS: Ondansetron 4 MG/2 ML VIAL IVP PRN (06:57)
[2016-05-05] MEDS ORDERED: Aminoglycoside Consult 1 EACH MC ONE (07:46)
[2016-05-05] MEDS: *HR* Heparin 5,000 UNIT/ML VIAL SQ SCH (08:08)
[2016-05-05] MEDS: Lactulose Oral Soln 20 GM/30 ML UDC PO SCH (09:21)
[2016-05-05] MEDS: Ketorolac 15 MG/ML VIAL IVP PRN (09:30)
[2016-05-05] MEDS: FluocinoNIDE 0.05% CRM 15 GM TUBE TP SCH (09:30)
[2016-05-05] MEDS: Vancomycin 1,750 MG in D5% in Water 500 ML IVPB SCH (11:24)
[2016-05-05] MEDS: Famotidine 20 MG TABLET PO SCH (11:24)
[2016-05-05] MEDS ORDERED: Lidocaine -MPF 1% 5 ML AMPUL INFILT ONE ×2 (14:39→22:01)
--- NOTE | 2016-05-05 14:58 | Internal Med Progress Note ---
Date of Encounter: 05/05/16 Time of Encounter: 14:50 - Assessment and plan (1) Cellulitis Current Visit: Yes Status: Acute Assessment and plan: Patient initially was febrile, with criteria for sepsis, there was a concern for septic arthritis. She was started on both Zosyn and vancomycin, however still had fever and was in significant pain. Gram stain did reveal gram positive bacteria, staph MSSA., will d/c vanco and give cefazolin. Evaluated by orthopedic surgery, will go to the OR today for open irrigation. Will need iv antibiotics for at least 2 weeks. Plan of care was explained to the patient, she expressed understanding. Follow cultures. Follow renal function tests. Qualifiers: Site of cellulitis: extremity Site of cellulitis of extremity: lower extremity Laterality: left Qualified Code(s): L03.116 - Cellulitis of left lower limb (2) Obesity Current Visit: No Status: Chronic Qualifiers: Obesity type: unspecified obesity type Obesity severity: morbid Qualified Code(s): E66.01 - Morbid (severe) obesity due to excess calories (3) Thyroid cancer Current Visit: No Status: Chronic - Subjective Interval history: The patient was seen and examined on rounds. Family members were present during this encounter. Still feels pain in the left knee, however is getting better, less erythema. - Constitutional Vitals: Temp Pulse Resp BP Pulse Ox 98.4 F 69 19 116/80 98 05/05/16 10:48 05/05/16 10:48 05/05/16 10:48 05/05/16 10:48 05/05/16 10:48 General appearance: Present: cooperative, A&O X 3, morbidly obese - Head Head exam: Present: atraumatic, normocephalic - Eye Eye exam: Present: PERRL, conjuntiva pink, sclera anicteric Pupils: Present: PERRL - Neck Neck exam general surgery: Present: supple, trachea midline. Absent: lymphadenopathy - Respiratory Respiratory exam: Present: CTAB. Absent: accessory muscle use, rales, rhonchi, wheezes - Cardiovascular Cardiovascular exam: Present: RRR, +S1, +S2. Absent: diastolic murmur, gallop, rubs, systolic murmur - GI/Abdominal GI/Abdominal exam: Present: normal bowel sounds, soft, no peritoneal signs. Absent: distended, tenderness - Extremities Exam Extremities exam: Present: warm, radial pulses palpable and symetrical. Absent : calf tenderness, cyanotic, pedal edema Additional comments: left knee with mild erythema and swelling. surgical scar noted. - Neurological Exam Neurological exam: Present: CN II-XII intact, oriented X3, no focal deficits. Absent: pronater drift, facial droop, speech deficit - Skin Skin exam: Present: dry, intact Internal Medicine: Result - Labs CBC & Chem 7: 05/05/16 04:10 05/05/16 04:10 Labs: Short CBC 05/05/16 Range/Units 04:10 WBC 8.7 (4.3-11.1) K/mcL Hgb 10.0 L (11.5-15.4) g/dL Hct 30.0 L (35.3-44.9) % Plt Count 239 (140-400) K/mcL Neutrophils # 5.5 (1.6-8.9) K/mcL BMP 05/05/16 04:10 Sodium 140 Potassium 3.8 Chloride 105 Carbon Dioxide 24 BUN 11 Creatinine 0.78 Glucose 110 H Calcium 9.1 - VTE Documentation of Mechanical Device: Venous foot pump, device Consult Discharge Plan - Plan Referrals: Tita Clemente MD [Primary Care Provider] -
[2016-05-05] MEDS ORDERED: ceFAZolin 2,000 MG in D5% in Water 100 ML IVPB SCH (16:00)
--- NOTE | 2016-05-05 18:26 | Anesthesia Evaluation PreOp ---
Date of Encounter: 05/05/16 Time of Encounter: 18:25 - Past History Planned Operation: I & D Left TKA Poly Exchange Cardiac History: HTN Pulmonary History: Denies Any Significant HX DATA COMMUNICATIONS TECHNICIAN History: Denies Any Significant HX Other Medical History: Thyroid (Hx Papillary Ca s/p Thyroidectomy 2003), Other ( Morbid Obesity) Anesthesia History: No Prior Anesthetic Complications : No Alcohol Use: none Drug use: none Medications and Allergies Hydrochlorothiazide 25 mg PO DAILY 09/15/15 [History] Levothyroxine [Synthroid] 175 mcg PO DAILY 09/15/15 [History] OxyCODONE Immed Rel [Roxicodone 5 MG] 5 - 10 mg PO Q6HR PRN #40 tablet 04/02/16 [Rx] Ibuprofen [Motrin] 800 mg PO Q8HR 05/01/16 [History] CeFAZolin [Ancef] 2,000 mg IVPB Q8HR 42 Days 05/05/16 [Rx] Allergies Erythromycin Base Allergy (Verified 05/01/16 17:11) Gastrointestinal Upset - Meds/Allergy Pre-op Review Medications Reviewed: Yes Allergies Reviewed: Yes Beta Blockers on Current Med List: No Anesthesia Results - Labs 05/05/16 04:10 05/05/16 04:10 - Imaging EKG: report reviewed (SR) Anesthesia Exam O2 Sat O2 Sat by Pulse Oximetry 98 O2 Sat by Pulse Oximetry 99 O2 Sat by Pulse Oximetry 99 O2 Sat by Pulse Oximetry 100 O2 Sat by Pulse Oximetry 99 Vital Signs Temp Pulse Resp BP Pulse Ox 99.9 F H 75 18 132/83 98 05/01/16 17:06 05/01/16 17:06 05/01/16 17:06 05/01/16 17:06 05/01/16 17:06 Height: 5'2 Weight: 258 lbs NPO (# of Hours): MN - HEENT Pupil (Motor): Pupils equal, EOMI Mallampati: II Teeth: Normal Oral Opening: Greater than 3 - DATA COMMUNICATIONS TECHNICIAN LOC: Oriented DATA COMMUNICATIONS TECHNICIAN Motor: Normal RUE, Normal LUE, Normal RLE, Normal LLE, Normal Face DATA COMMUNICATIONS TECHNICIAN Sensory: Normal: RUE, LUE, RLE, LLE, Face - Cardiac Rhythm: Regular Murmur: None JVD: No Carotid Bruit: No - Pulmonary Breath Sounds: bilateral Clear Respiratory Effort: Symmetrical Anesthesia Assess/Plan ASA Score: 3 (HTN MO) Modified Phil Scale for Level of Consciousness: Cooperative, oriented, and tranquil Anesthetic Plan: General Monitoring Plan: Standard Monitors Recovery Plan: PACU (Discussed GA, agrees to proceed)
[2016-05-05] MEDS ORDERED: *HR* Propofol 200 MG/20 ML VIAL IVP ONE (18:47)
[2016-05-05] MEDS ORDERED: Lidocaine -MPF 2% 2 ML VIAL ONE (18:49)
[2016-05-05] MEDS ORDERED: *HR* Succinylcholine 200 MG/10 ML VIAL IVP ONE (18:49)
[2016-05-05] MEDS ORDERED: Dexamethasone 4 MG/ML VIAL ONE (18:49)
[2016-05-05] MEDS ORDERED: Ondansetron 4 MG/2 ML VIAL ONE (18:49)
[2016-05-05] MEDS ORDERED: *HR* FentaNYL (PF) 100 MCG/2 ML VIAL ONE ×2 (18:50→19:23)
[2016-05-05] MEDS ORDERED: *HR* Midazolam HCl 2 MG/2 ML VIAL ONE (19:00)
[2016-05-05] MEDS ORDERED: *HR* HYDROmorphone 2 MG/ML SYRINGE ONE (19:26)
--- NOTE | 2016-05-05 19:55 | Orthopedic Operative Note ---
Date of procedure: 05/05/16 Pre-op diagnosis: Infection left total knee Post-op diagnosis: same Procedure: Procedure: Left revision tibial component Estimated blood loss: 500 cc Hardware: Arthrex tibia size 4, 12 x 100 stem, 12 PS Shirley, 5 mm medial augment Exam Under anesthesia: Full flexion full extension well-healed incision no swelling or erythema no varus valgus instability Procedure note The patient noted to have injury of extensor mechanism with a tear of the medial aspect, in the area of the medial approach. Concern for tibial subsidence decision made to revise tibia. Operative procedure: The patient was brought to the operating room and placed on the operating room table. After general anesthesia was administered the operative knee was examined. Findings were noted in the exam under anesthesia. The operative extremity was prepped and draped in sterile surgical fashion. The patient received IV antibiotics prior to skin incision. A standard midline incision was made centered over the patella. The incision was made through the skin and subcutaneous tissue through the old incision. Examination of the extensor mechanism revealed a disruption of the medial aspect of the extensor mechanism. Cultures were obtained at this point fluid was serosanguineous. A medial parapatellar tendon approach was performed. Care was taken to preserve tissue along the medial aspect of the patella. And to protect the patella tendon. The deep MCL was released off the medial tibia. The infra patella fat pad was excised. The knee was brought into flexion the tibial poly-was removed. The femur was well fixed. There was concern that there was tibial subsidence. Incision was made to remove the tibial component this was removed without incident. Revision stem was used reamed up to a size 12 x 100. 5 mm augment was used on the medial side for the size 4 component. Patient full extension and full flexion with a 12 PS Shirley. This point I am extensive synovectomy was performed and the soft tissues with a Betadine saline solution. The tibial component was assembled on the back table and cemented in place. A 12 PS Shirley was seated and secured. Near full flexion full extension excellent patella tracking. After the cement hardened the knee was irrigated out again. The extensor mechanism was closed with a running #2 F PDS suture. The deep tissue was irrigated and closed deep with #1 PDS suture superficially with 0 PDS suture. The skin was closed with skin alina. The patient was placed in a sterile dressing and postoperative brace. They were extubated and transferred to recovery room in stable condition. Anesthesia: GETA Surgeon: Gian Rodriguez Condition: stable Disposition: PACU
[2016-05-05] MEDS ORDERED: *HR* HYDROmorphone (PF) 1 MG/ML SYRINGE ONE ×2 (20:19→20:31)
[2016-05-05] MEDS ORDERED: Acetaminophen IV 1,000 MG/100 ML INFUS..BTL IVPB ONE (20:29)
[2016-05-05] MEDS ORDERED: Ringers Solution, Lactated 1,000 ML ONE (21:28)
--- NOTE | 2016-05-05 21:54 | Anesthesia Evaluation Post Op ---
Date of Encounter: 05/05/16 Time of Encounter: 21:53 - Vital Signs Vital Signs: Last Vital Signs Temp 97.6 F 05/05/16 21:30 Pulse 104 05/05/16 21:40 Resp 14 05/05/16 21:40 BP 150/90 05/05/16 21:40 Pulse Ox 97 05/05/16 21:40 - Lungs Lungs: Clear Ascult./Percussion - Airway Airway: Non-obstructed - Cardiovascular Regular Rate - Mental Status Mental Status: Alert & Oriented, Answers Appropriately - Pain Pain Scale: 5 - Nausea Vomiting Nausea Vomiting: Not Present - Hydration Hydration: Ice chips - Discharge PostOp Status: Transfer Patient to floor
[2016-05-05] MEDS ORDERED: Acetaminophen 325 MG TABLET PO PRN (22:01)
[2016-05-05] MEDS ORDERED: Temazepam 15 MG CAPSULE PO PRN (22:01)
[2016-05-05] MEDS ORDERED: Ondansetron 4 MG/2 ML VIAL IVP PRN (22:01)
[2016-05-05] MEDS ORDERED: MOM Conc 10 ML UD.LIQ PO PRN (22:01)
[2016-05-05] MEDS ORDERED: Sennosides 8.6 MG TABLET PO PRN (22:01)
[2016-05-05] MEDS ORDERED: *HR* Heparin 5,000 UNIT/ML VIAL SQ SCH (23:00)
[2016-05-05] MEDS: ceFAZolin 2,000 MG in D5% in Water 100 ML IVPB SCH (23:37)
[2016-05-05] MEDS: Ibuprofen 800 MG TABLET PO SCH (23:38)
[2016-05-06] MEDS: *HR* HYDROcodone/Acet 5/325 mg TABLET PO PRN ×5 (00:46→18:14)
[2016-05-06 03:48] LABS: Hematocrit 28.6 % (35.3-44.9); Hemoglobin 9.2 g/dL (11.5-15.4)
[2016-05-06] MEDS: *HR* Enoxaparin 30 MG/0.3 ML SYRINGE SQ SCH ×2 (06:21→18:14)
[2016-05-06] MEDS ORDERED: Ringers Solution, Lactated 1,000 ML IVC SCH (07:30)
[2016-05-06] MEDS: FluocinoNIDE 0.05% CRM 15 GM TUBE TP SCH (08:25)
[2016-05-06] MEDS: Ibuprofen 800 MG TABLET PO SCH ×2 (08:28→15:20)
[2016-05-06] MEDS: Lactulose Oral Soln 20 GM/30 ML UDC PO SCH (08:29)
[2016-05-06] MEDS: ceFAZolin 2,000 MG in D5% in Water 100 ML IVPB SCH ×2 (08:29→15:20)
[2016-05-06] MEDS: Famotidine 20 MG TABLET PO SCH (09:03)
[2016-05-06] MEDS: *HR* HYDROmorphone (PF) 1 MG/ML SYRINGE IVP PRN ×2 (09:51→21:53)
--- NOTE | 2016-05-06 14:40 | Orthopedics Progress Note ---
Date of Encounter: 05/06/16 Time of Encounter: 14:38 - Assessment and Plan (1) Arthritis of knee, right Current Visit: No Status: Acute Postoperative day #1 status post I&D with revision Continue immobilization Continue IV antibiotics for MSSA Continue OT/PT Continue DVT prophylaxis Subjective Principal diagnosis: Left total knee infection Interval history: Patient is comfortable, pain controlled with Dilaudid Left lower extremity: hinge knee brace is in place and locked in full extension Dressings are clean dry intact Bilateral calves soft and nontender Neurovascularly intact distally Objective Vital signs: Vital Signs Temp Pulse Resp BP Pulse Ox 05/06/16 11:56 98.3 F 83 14 130/66 98 05/06/16 06:29 97.9 F 76 16 154/83 96 05/06/16 03:30 97.6 F 73 14 150/89 98 05/06/16 01:25 97.8 F 77 16 144/88 98 05/06/16 00:26 98.2 F 74 14 144/85 98 05/05/16 23:20 98.6 F 88 14 138/92 98 05/05/16 22:50 98.1 F 92 12 153/82 99 05/05/16 22:23 98.5 F 96 18 146/89 97 05/05/16 22:08 102 16 146/90 95 05/05/16 22:00 97.8 F 106 14 150/94 96 05/05/16 21:50 98 16 135/90 95 05/05/16 21:40 104 14 150/90 97 05/05/16 21:30 97.6 F 101 14 152/97 97 05/05/16 21:20 108 16 152/90 97 05/05/16 21:10 102 12 130/85 96 05/05/16 21:00 97.7 F 99 12 148/90 93 L 05/05/16 20:50 109 14 192/99 96 05/05/16 20:40 92 12 162/90 95 05/05/16 20:30 97.6 F 110 16 167/97 96 05/05/16 20:20 105 16 151/89 93 L 05/05/16 20:10 112 16 167/95 95 05/05/16 20:00 96.8 F L 108 10 157/95 99 Intake and Output 05/05/16 05/06/16 05/06/16 23:59 07:59 15:59 Intake Total 200 / 200 100 / 100 100 / 100 Output Total 1050 / 1050 Balance -850 / -850 100 / 100 100 / 100 Intake: IV Fluids 200 / 200 100 / 100 100 / 100 Ofirmev 1,000 mg In 100 100 / 100 ml @ 400 mls/hr IVPB ONCE ONE Rx#:[id number] Ancef 2,000 MG In 100 / 100 100 / 100 100 / 100 Dextrose 5% 100 ML @ 200 mls/hr IVPB Q8HR [facility] Rx#: [id number] Output: Urine 550 / 550 Estimated Blood Loss 500 / 500 Other: # Voids 1 1 Incision: clean and dry - Labs CBC & BMP: 05/06/16 03:30 05/05/16 04:10 Labs: Abnormal lab results RBC 3.26 M/mcL (3.82-4.97) L 05/05/16 04:10 Hgb 9.2 g/dL (11.5-15.4) L 05/06/16 03:30 Hct 28.6 % (35.3-44.9) L 05/06/16 03:30 ESR 34 mm/hr (0-15) H 05/01/16 18:59 Glucose 110 mg/dL (70-99) H 05/05/16 04:10 C-Reactive Protein 224 mg/L (Less than 5) H 05/04/16 04:20 - VTE Documentation of Mechanical Device: Venous foot pump, device Consult Discharge Plan - Plan Referrals: Tita Clemente MD [Primary Care Provider] - Prescriptions: CeFAZolin [Ancef] 2,000 mg IVPB Q8HR 42 Days
--- NOTE | 2016-05-06 16:59 | Internal Med Progress Note ---
Date of Encounter: 05/06/16 Time of Encounter: 11:00 - Assessment and plan (1) Cellulitis Current Visit: Yes Status: Acute Assessment and plan: Patient initially was febrile, with criteria for sepsis, there was a concern for septic arthritis. She was started on both Zosyn and vancomycin, however still had fever and was in significant pain. Gram stain did reveal gram positive bacteria, staph MSSA., continue with cefazolin. Evaluated by orthopedic surgery,went to OR yesterday. Will need iv antibiotics for 4 weeks. Plan of care was explained to the patient, she expressed understanding. Follow cultures. Follow renal function tests. Qualifiers: Site of cellulitis: extremity Site of cellulitis of extremity: lower extremity Laterality: left Qualified Code(s): L03.116 - Cellulitis of left lower limb (2) Obesity Current Visit: No Status: Chronic Qualifiers: Obesity type: unspecified obesity type Obesity severity: morbid Qualified Code(s): E66.01 - Morbid (severe) obesity due to excess calories (3) Thyroid cancer Current Visit: No Status: Chronic - Subjective Interval history: The patient was seen and examined on rounds. Family members were present during this encounter. Still feels pain in the left knee, however is getting better, less erythema. PO#1 post revision. - Constitutional Vitals: Temp Pulse Resp BP Pulse Ox 98.2 F 84 16 143/86 97 05/06/16 16:20 05/06/16 16:20 05/06/16 16:20 05/06/16 16:20 05/06/16 16:20 General appearance: Present: cooperative, A&O X 3, morbidly obese - Head Head exam: Present: atraumatic, normocephalic - Eye Eye exam: Present: PERRL, conjuntiva pink, sclera anicteric Pupils: Present: PERRL - Neck Neck exam general surgery: Present: supple, trachea midline. Absent: lymphadenopathy - Respiratory Respiratory exam: Present: CTAB. Absent: accessory muscle use, rales, rhonchi, wheezes - Cardiovascular Cardiovascular exam: Present: RRR, +S1, +S2. Absent: diastolic murmur, gallop, rubs, systolic murmur - GI/Abdominal GI/Abdominal exam: Present: normal bowel sounds, soft, no peritoneal signs. Absent: distended, tenderness - Extremities Exam Extremities exam: Present: warm, radial pulses palpable and symetrical. Absent : calf tenderness, cyanotic, pedal edema - Neurological Exam Neurological exam: Present: CN II-XII intact, oriented X3, no focal deficits. Absent: pronater drift, facial droop, speech deficit - Skin Skin exam: Present: dry, intact Internal Medicine: Result - Labs CBC & Chem 7: 05/06/16 03:30 05/05/16 04:10 Labs: Short CBC 05/06/16 Range/Units 03:30 Hgb 9.2 L (11.5-15.4) g/dL Hct 28.6 L (35.3-44.9) % - Impressions Impressions Knee X-Ray 05/05/16 18:44 IMPRESSION: Total knee arthropasty without acute hardware complication. D/ / Jarrett Mcallister MD / Jarrett Mcallister MD Interpreting Provider: Jarrett Mcallister MD - VTE Documentation of Mechanical Device: Venous foot pump, device Consult Discharge Plan - Plan Referrals: Tita Clemente MD [Primary Care Provider] - Prescriptions: CeFAZolin [Ancef] 2,000 mg IVPB Q8HR 42 Days
[2016-05-07] MEDS: Ibuprofen 800 MG TABLET PO SCH ×3 (00:13→16:11)
[2016-05-07] MEDS: ceFAZolin 2,000 MG in D5% in Water 100 ML IVPB SCH ×3 (00:17→16:07)
[2016-05-07] MEDS: FluocinoNIDE 0.05% CRM 15 GM TUBE TP SCH ×2 (00:18→08:44)
[2016-05-07] MEDS: Lactulose Oral Soln 20 GM/30 ML UDC PO SCH ×2 (00:18→08:44)
[2016-05-07] MEDS: *HR* HYDROcodone/Acet 5/325 mg TABLET PO PRN ×4 (00:19→16:11)
[2016-05-07 04:36] LABS: BUN/Creatinine Ratio 14 (6-26); Blood Urea Nitrogen 11 mg/dL (7-20); Calcium 8.5 mg/dL (8.6-10.8); Carbon Dioxide 27 mEq/L (19-29); Chloride 104 mEq/L (98-109); Glucose 106 mg/dL (70-99); Osmolality,Calculated 292 (280-300); Potassium 3.5 mEq/L (3.5-4.5); Sodium 141 mEq/L (136-145); eGFR For African Americans > 60 (> 60); eGFR For Non-African Americans > 60 (> 60)
[2016-05-07 04:37] LABS: Hematocrit 23.9 % (35.3-44.9); Hemoglobin 7.8 g/dL (11.5-15.4)
[2016-05-07 04:38] LABS: Basophils % 0.4 %; Eosinophils # 0.2 K/mcL (0.0-0.6); Eosinophils % 2.6 %; Hematocrit 24.3 % (35.3-44.9); Hemoglobin 7.9 g/dL (11.5-15.4); Immature Granulocytes % 3.8 % (0-4); Lymphocytes # 2.3 K/mcL (0.6-4.6); Lymphocytes % 25.5 %; Mean Corpuscular HGB Conc 32.5 g/dL (31.6-35.5); Mean Corpuscular Volume 92.4 fL (83.0-100.0); Monocytes # 1.1 K/mcL (0.0-1.3); Platelet Count 258 K/mcL (140-400); Red Blood Count 2.63 M/mcL (3.82-4.97); Red Cell Distribution Width 14.4 % (11.5-14.5); Segmented Neutrophils % 55.7 %
[2016-05-07] MEDS: *HR* Enoxaparin 30 MG/0.3 ML SYRINGE SQ SCH ×2 (07:10→18:11)
[2016-05-07] MEDS ORDERED: 0.9 % Sodium Chloride 250 ML IVC PRN (07:53)
[2016-05-07] MEDS ORDERED: Furosemide 20 MG/2 ML VIAL IVP PRN (07:53)
[2016-05-07 08:54] LABS: Hematocrit 28.4 % (35.3-44.9); Hemoglobin 9.3 g/dL (11.5-15.4)
--- NOTE | 2016-05-07 13:08 | Orthopedics Progress Note ---
Date of Encounter: 05/07/16 Time of Encounter: 13:07 - Assessment and Plan (1) Arthritis of knee, right Current Visit: No Status: Acute Postoperative day #2 status post I&D with revision Continue immobilization Continue IV antibiotics for MSSA Continue OT/PT Continue DVT prophylaxis Discharge planning for tomorrow Subjective Principal diagnosis: Left total knee infection Interval history: Patient is comfortable, pain better controlled Left lower extremity: hinge knee brace is in place and locked in full extension Dressings are clean dry intact Bilateral calves soft and nontender Neurovascularly intact distally Objective Vital signs: Vital Signs Temp Pulse Resp BP Pulse Ox 05/07/16 12:00 98.0 F 84 16 137/83 99 05/07/16 06:31 98.5 F 78 16 137/85 98 05/07/16 03:52 98.3 F 76 15 141/83 97 05/07/16 00:00 98.3 F 101 15 143/88 98 05/06/16 20:00 98 05/06/16 19:59 98.5 F 86 16 151/91 97 05/06/16 16:20 98.2 F 84 16 143/86 97 Intake and Output 05/06/16 05/07/16 05/07/16 23:59 07:59 15:59 Intake Total 100 / 100 100 / 100 Output Total 400 / 400 Balance -300 / -300 100 / 100 Intake: IV Fluids 100 / 100 100 / 100 Ancef 2,000 MG In 100 / 100 100 / 100 Dextrose 5% 100 ML @ 200 mls/hr IVPB Q8HR [facility] Rx#: [id number] Output: Urine 400 / 400 Other: # Voids 2 Incision: clean and dry - Labs CBC & BMP: 05/07/16 08:40 05/07/16 04:10 Labs: Abnormal lab results RBC 2.63 M/mcL (3.82-4.97) L 05/07/16 04:10 Hgb 9.3 g/dL (11.5-15.4) L D 05/07/16 08:40 Hct 28.4 % (35.3-44.9) L 05/07/16 08:40 ESR 34 mm/hr (0-15) H 05/01/16 18:59 Glucose 106 mg/dL (70-99) H 05/07/16 04:10 Calcium 8.5 mg/dL (8.6-10.8) L 05/07/16 04:10 C-Reactive Protein 224 mg/L (Less than 5) H 05/04/16 04:20 - VTE Documentation of Mechanical Device: Venous foot pump, device Consult Discharge Plan - Plan Referrals: Tita Clemente MD [Primary Care Provider] - Prescriptions: CeFAZolin [Ancef] 2,000 mg IVPB Q8HR 42 Days
[2016-05-07] MEDS: Famotidine 20 MG TABLET PO SCH (14:28)
--- NOTE | 2016-05-07 16:46 | Internal Med Progress Note ---
Date of Encounter: 05/07/16 Time of Encounter: 16:45 - Assessment and plan (1) Cellulitis Current Visit: Yes Status: Acute Assessment and plan: Patient initially was febrile, with criteria for sepsis, there was a concern for septic arthritis. She was started on both Zosyn and vancomycin, however still had fever and was in significant pain. Gram stain did reveal gram positive bacteria, staph MSSA., continue with cefazolin. Evaluated by orthopedic surgery,went to OR 2 days ago. Will need iv antibiotics for 4 weeks. Plan of care was explained to the patient, she expressed understanding. Follow cultures. Follow renal function tests. D/C to rehab tomorrow. Qualifiers: Site of cellulitis: extremity Site of cellulitis of extremity: lower extremity Laterality: left Qualified Code(s): L03.116 - Cellulitis of left lower limb (2) Obesity Current Visit: No Status: Chronic Qualifiers: Obesity type: unspecified obesity type Obesity severity: morbid Qualified Code(s): E66.01 - Morbid (severe) obesity due to excess calories (3) Thyroid cancer Current Visit: No Status: Chronic - Subjective Interval history: The patient was seen and examined on rounds. Family members were present during this encounter. Still feels pain in the left knee, however is getting better, less erythema. PO#2 post revision. - Constitutional Vitals: Temp Pulse Resp BP Pulse Ox 98.0 F 84 16 137/83 99 05/07/16 12:00 05/07/16 12:00 05/07/16 12:00 05/07/16 12:00 05/07/16 12:00 General appearance: Present: cooperative, A&O X 3, morbidly obese Exam: knee brace placed. - Head Head exam: Present: atraumatic, normocephalic - Eye Eye exam: Present: PERRL, conjuntiva pink, sclera anicteric Pupils: Present: PERRL - Neck Neck exam general surgery: Present: supple, trachea midline. Absent: lymphadenopathy - Respiratory Respiratory exam: Present: CTAB. Absent: accessory muscle use, rales, rhonchi, wheezes - Cardiovascular Cardiovascular exam: Present: RRR, +S1, +S2. Absent: diastolic murmur, gallop, rubs, systolic murmur - GI/Abdominal GI/Abdominal exam: Present: normal bowel sounds, soft, no peritoneal signs. Absent: distended, tenderness - Extremities Exam Extremities exam: Present: warm, radial pulses palpable and symetrical. Absent : calf tenderness, cyanotic, pedal edema - Neurological Exam Neurological exam: Present: CN II-XII intact, oriented X3, no focal deficits. Absent: pronater drift, facial droop, speech deficit - Skin Skin exam: Present: dry, intact Internal Medicine: Result - Labs CBC & Chem 7: 05/07/16 08:40 05/07/16 04:10 Labs: Short CBC 05/07/16 05/07/16 05/07/16 Range/Units 04:10 04:10 08:40 WBC 8.9 (4.3-11.1) K/mcL Hgb 7.8 L 7.9 L 9.3 L D (11.5-15.4) g/dL Hct 23.9 L 24.3 L 28.4 L (35.3-44.9) % Plt Count 258 (140-400) K/mcL Neutrophils # 5.0 (1.6-8.9) K/mcL BMP 05/07/16 04:10 Sodium 141 Potassium 3.5 Chloride 104 Carbon Dioxide 27 BUN 11 Creatinine 0.78 Glucose 106 H Calcium 8.5 L - VTE Documentation of Mechanical Device: Venous foot pump, device Consult Discharge Plan - Plan Referrals: Tita Clemente MD [Primary Care Provider] - Prescriptions: CeFAZolin [Ancef] 2,000 mg IVPB Q8HR 42 Days
[2016-05-07] MEDS: *HR* HYDROmorphone (PF) 1 MG/ML SYRINGE IVP PRN (19:55)
[2016-05-08] MEDS: Lactulose Oral Soln 20 GM/30 ML UDC PO SCH ×2 (00:11→09:00)
[2016-05-08] MEDS: FluocinoNIDE 0.05% CRM 15 GM TUBE TP SCH ×2 (00:11→09:02)
[2016-05-08] MEDS: ceFAZolin 2,000 MG in D5% in Water 100 ML IVPB SCH ×2 (00:11→09:01)
[2016-05-08] MEDS: Ibuprofen 800 MG TABLET PO SCH ×2 (00:12→09:00)
[2016-05-08] MEDS: *HR* HYDROcodone/Acet 5/325 mg TABLET PO PRN ×4 (00:17→13:35)
[2016-05-08 05:03] LABS: Hematocrit 24.7 % (35.3-44.9); Hemoglobin 8.2 g/dL (11.5-15.4)
--- NOTE | 2016-05-08 06:42 | Orthopedics Progress Note ---
Date of Encounter: 05/08/16 Time of Encounter: 06:41 Subjective Principal diagnosis: Left total knee infection Interval history: Patient was seen this morning doing well without complaints. Afebrile vital signs stable. Operative extremity: Neurovascularly intact Dressing clean dry and intact Calves nontender Assessment and plan: Continue with postoperative care Culture positive for staph aureus from the OR continue on IV Ancef 6 weeks cleared for discharge today. Objective Vital signs: Vital Signs Temp Pulse Resp BP Pulse Ox 05/08/16 04:14 98.8 F 80 15 107/69 94 L 05/07/16 23:49 100.1 F H 93 16 139/78 98 05/07/16 20:21 99 F 93 16 126/78 99 05/07/16 19:00 99 05/07/16 14:08 98.1 F 87 16 134/86 98 05/07/16 12:00 98.0 F 84 16 137/83 99 Intake and Output 05/07/16 05/07/16 05/08/16 15:59 23:59 07:59 Intake Total 100 / 100 425 / 425 300 / 300 Balance 100 / 100 425 / 425 300 / 300 Intake: IV Fluids 100 / 100 100 / 100 Ancef 2,000 MG In 100 / 100 100 / 100 Dextrose 5% 100 ML @ 200 mls/hr IVPB Q8HR [facility] Rx#: [id number] Oral 325 / 325 300 / 300 Other: # Voids 3 - Labs CBC & BMP: 05/08/16 04:50 05/07/16 04:10 Labs: Abnormal lab results RBC 2.63 M/mcL (3.82-4.97) L 05/07/16 04:10 Hgb 8.2 g/dL (11.5-15.4) L 05/08/16 04:50 Hct 24.7 % (35.3-44.9) L 05/08/16 04:50 ESR 34 mm/hr (0-15) H 05/01/16 18:59 Glucose 106 mg/dL (70-99) H 05/07/16 04:10 Calcium 8.5 mg/dL (8.6-10.8) L 05/07/16 04:10 C-Reactive Protein 224 mg/L (Less than 5) H 05/04/16 04:20 - VTE Documentation of Mechanical Device: Venous foot pump, device Consult Discharge Plan - Plan Referrals: Tita Clemente MD [Primary Care Provider] - Prescriptions: CeFAZolin [Ancef] 2,000 mg IVPB Q8HR 42 Days
[2016-05-08 07:29] LABS: Hematocrit 26.2 % (35.3-44.9); Hemoglobin 8.5 g/dL (11.5-15.4)
[2016-05-08] MEDS: Famotidine 20 MG TABLET PO SCH (09:00)
[2016-05-08] MEDS: *HR* Enoxaparin 30 MG/0.3 ML SYRINGE SQ SCH ×2 (09:01→09:04)
--- NOTE | 2016-05-08 10:51 | Discharge Summary ---
<Peyman Mueller - Last Filed: 05/08/16 17:17> Date of Encounter: 05/08/16 Time of Encounter: 10:43 - Discharge Diagnosis (1) Cellulitis Priority: Primary Status: Acute Qualifiers: Site of cellulitis: extremity Site of cellulitis of extremity: lower extremity Laterality: left Qualified Code(s): L03.116 - Cellulitis of left lower limb (2) HTN (hypertension) Priority: Primary Status: Chronic Qualifiers: Hypertension type: unspecified secondary hypertension Qualified Code(s): I15.9 - Secondary hypertension, unspecified; I15 - Secondary hypertension (3) Obesity Priority: Secondary Status: Chronic Qualifiers: Obesity type: unspecified obesity type Obesity severity: morbid Qualified Code(s): E66.01 - Morbid (severe) obesity due to excess calories (4) Thyroid cancer Priority: Secondary Status: Chronic - Discharge Medications Prescriptions: CeFAZolin [Ancef] 2,000 mg IVPB Q8HR 42 Days Enoxaparin [Lovenox] 30 mg SQ Q12HCO 30 Days Bed - Hospital [Hospital Bed] 1 each .ROUTE AD #1 each Ferrous Sulfate 325 mg PO BID #28 tablet HYDROcodone/Acet 5/325 mg [[place] 5-325 mg] 2 tab PO Q4H PRN #20 tab PRN Reason: Pain Sennosides [Senna] 17.2 mg PO HS #28 tablet Home Medications: Hydrochlorothiazide 25 mg PO DAILY 09/15/15 [History] Levothyroxine [Synthroid] 175 mcg PO DAILY 09/15/15 [History] OxyCODONE Immed Rel [Roxicodone 5 MG] 5 - 10 mg PO Q6HR PRN #40 tablet 04/02/16 [Rx] Ibuprofen [Motrin] 800 mg PO Q8HR 05/01/16 [History] CeFAZolin [Ancef] 2,000 mg IVPB Q8HR 42 Days 05/05/16 [Rx] Bed - Hospital [Hospital Bed] 1 each .ROUTE AD #1 each 05/08/16 [Rx] Enoxaparin [Lovenox] 30 mg SQ Q12HCO 30 Days 05/08/16 [Rx] Ferrous Sulfate 325 mg PO BID #28 tablet 05/08/16 [Rx] HYDROcodone/Acet 5/325 mg [[place] 5-325 mg] 2 tab PO Q4H PRN #20 tab 05/08/16 [Rx ] Sennosides [Senna] 17.2 mg PO HS #28 tablet 05/08/16 [Rx] Allergies/Adverse Reactions: Allergies Erythromycin Base Allergy (Verified 05/01/16 17:11) Gastrointestinal Upset Date of admission: 05/01/16 21:48 Primary care physician: Tita Olvera Consults: 05/05/16 22:01 Consult to Occupational Therapy [CONS] Routine Comment: Evaluate, develop and implement POC Consult to Orthopedic Navigator [CONS] [CONS] Routine Consult to Physical Therapy [CONS] Routine Comment: Evaluate, develop and impliment POC Consult to [employer] [CONS] Routine Reason for SW Consult: post op joint replacement RT Post Op Consult [CONS] Routine Discharging clinician: Peyman Mueller Anticipated date of discharge: 05/08/16 - Patient Status Disposition: Home Health Service Condition: Good Functional capacity at discharge: wheelchair bound Overall status at discharge: patient is progressing back to baseline - Discharge Instructions Instructions: Cellulitis (DC), Chronic Hypertension (DC) Follow Up With: Gian Rodriguez MD [Partnered Physician] - 05/09/16 7:10 am Tita Clemente MD [Primary Care Provider] - Forms: ED Satisfaction Letter Additional Instructions: Follow up with Dr. Subramanian's office for re-evaluation in 1 week. Complete 42 days of IV Antibiotics as prescribed. Complete prescribed medications. Follow up with PCP in 3-5 days. - Diet and Activity Activity: as per physical therapy Diet: advance to your usual diet Interval History: Cellulitis of the left knee. Hospital course: Ms. Mendes is a 50 year old female history of morbid obesity, recent left knee replacement, hypertension, thyroid cancer was admitted with cellulitis of the left knee. Orthopedics was consult to as the patient had a recent orthopedic intervention. Blood cultures were collected. CRP was elevated at 134, WBCs were 11.9 and the patient was started on IV vancomycin and Zosyn. Patient underwent sterile aspiration of the left knee on 05/03/2016 and the collection was sent for Gram stain showed no bacteria. Patient's symptoms did not improve and on 05/05/2016 was resulted patient's positive staph aureus (MSSA) cultures of the left knee. Vancomycin was discontinued and cefazolin was started. On the patient was brought to the OR and underwent I&D with revision of the left knee. She was continued on Cefazolin on IV with PICC line placed. During the remainder of her inpatient stay she continued to show improvement with decreased pain of the left knee. She had been seen and evaluated by physical therapy. Patient is insistent on returning home during her recovery. Scripts for cefazolin, anticoagulation and pain control are provided. On 2016 the patient was deemed stable for discharge with close follow-up. She is to undergo 6 weeks of cefazolin IV antibiotic therapy. - Time Spent with Patient Total time spent providing and/or coordinating discharge services: - Constitutional Vitals: Temp Pulse Resp BP Pulse Ox 98.2 F 82 16 122/73 97 05/08/16 08:30 05/08/16 08:30 05/08/16 08:30 05/08/16 08:30 05/08/16 08:30 General appearance: Present: cooperative, A&O X 3, morbidly obese - VTE Documentation of Mechanical Device: Venous foot pump, device <Alex Parker - Last Filed: 05/08/16 18:33> - Discharge Diagnosis (1) Cellulitis Status: Acute Qualifiers: Site of cellulitis: extremity Site of cellulitis of extremity: lower extremity Laterality: left Qualified Code(s): L03.116 - Cellulitis of left lower limb (2) Obesity Status: Chronic Qualifiers: Obesity type: unspecified obesity type Obesity severity: morbid Qualified Code(s): E66.01 - Morbid (severe) obesity due to excess calories (3) Thyroid cancer Status: Chronic Date of admission: 05/01/16 21:48 Primary care physician: Tita Frey-[facility] Consults: 05/05/16 22:01 Consult to Occupational Therapy [CONS] Routine Comment: Evaluate, develop and implement POC Consult to Orthopedic Navigator [CONS] [CONS] Routine Consult to Physical Therapy [CONS] Routine Comment: Evaluate, develop and impliment POC Consult to [employer] [CONS] Routine Reason for SW Consult: post op joint replacement RT Post Op Consult [CONS] Routine Hospital course: Ms. Mendes is a 50 year old female - Time Spent with Patient Total time spent providing and/or coordinating discharge services: - Constitutional Vitals: Temp Pulse Resp BP Pulse Ox 98.1 F 74 18 124/83 97 05/08/16 12:15 05/08/16 12:15 05/08/16 12:15 05/08/16 12:15 05/08/16 10:51 - Attending Attestation I agree with the physical examination findings, assessment and plan documented by the resident Dr. Garcia. . I examined the patient independently. Patient is stable, we will discharge her today. Will continue with IV antibiotics to complete 6 weeks.
[2016-05-08 10:53] VITALS: BP 124/83
--- NOTE | 2016-05-08 11:11 | Physician Discharge Referral ---
Home Health/Hosp Referral Info Transfer to: Home Health Provider in Charge Post Discharge: PCP - Diagnosis (1) Cellulitis Priority: Primary Status: Acute (2) HTN (hypertension) Status: Chronic (3) Obesity Status: Chronic (4) Thyroid cancer Status: Chronic - Respiratory Orders Smoking Cessation: Smoking cessation has been advised. For more information, call the [place] Tobacco Quit Line at 7-400-JHMR-NOW. - Diet/Nutrition Diet/Nutrition Orders: Regular - Activity Activity Orders: Walker - Services Needed Following services are medically necessary services: Home Health Aide - Transfer Medications Prescriptions: CeFAZolin [Ancef] 2,000 mg IVPB Q8HR 42 Days Enoxaparin [Lovenox] 30 mg SQ Q12HCO 30 Days Ferrous Sulfate 325 mg PO BID #28 tablet Sennosides [Senna] 17.2 mg PO HS #28 tablet Home Medications: Hydrochlorothiazide 25 mg PO DAILY 09/15/15 [History] Levothyroxine [Synthroid] 175 mcg PO DAILY 09/15/15 [History] OxyCODONE Immed Rel [Roxicodone 5 MG] 5 - 10 mg PO Q6HR PRN #40 tablet 04/02/16 [Rx] Ibuprofen [Motrin] 800 mg PO Q8HR 05/01/16 [History] CeFAZolin [Ancef] 2,000 mg IVPB Q8HR 42 Days 05/05/16 [Rx] Enoxaparin [Lovenox] 30 mg SQ Q12HCO 30 Days 05/08/16 [Rx] Ferrous Sulfate 325 mg PO BID #28 tablet 05/08/16 [Rx] Sennosides [Senna] 17.2 mg PO HS #28 tablet 05/08/16 [Rx] Allergies/Adverse Reactions: Allergies Erythromycin Base Allergy (Verified 05/01/16 17:11) Gastrointestinal Upset Certification: Further, I certify that my clinical findings support that this patient is homebound (i.e. absences from home require considerable and taxing effort and are for medical reasons or judaism services or infrequently or short duration when for other reasons) because: Homebound Reason: Patient requires assistance of a person or device to safely leave home, Post-surgery restriction and or conditions limit ability to leave home Attestation: My signature below is to certify that this patient is under my care and that I, or nurse practitioner, or a physician's assistant finance director working with me, has a face-to -face encounter with this patient.
--- NOTE | 2016-05-17 09:54 | Orthopedic Operative Note ---
Date of procedure: 05/03/16 Pre-op diagnosis: Left knee swelling erythema fencepost total knee replacement Post-op diagnosis: same Procedure: Procedure: Left knee aspiration Estimated blood loss 0 Procedure: Patient underwent a sterile aspiration of the left knee. Serosanguineous fluid was returned. This was done under sterile conditions and sent for Gram stain and culture. Anesthesia: none Surgeon: Gian Rodriguez
== END 2016-05-08 16:05 | disposition home health service (06) | DRG 466 ==
LOC: 3NENU 16:01 → EMEROO 16:01 → SUATTDRO 21:48 → 3NENU 21:55
PROVIDERS: ADMIT Hospitalist; ATTEND Internal Medicine